=== PATIENT | male | born 1950 | race Two or more races ===

== ENCOUNTER 2023-11-11 21:32 | Emergency (ER) | payer OTHER ==
[~2023-11-11] VITALS: Ht 182.9 cm; Wt 77.1 kg
[2023-11-11] MEDS ORDERED: HYDROcodone 5-APAP 325 TAB PO ONE (23:05)
[2023-11-12] MEDS ORDERED: RX Prepack 6 Tabs Oxycodone 5mg UD ONE (00:15)
[2023-11-12 00:30] VITALS: BP 143/78
== END 2023-11-12 00:48 | disposition home or self-care (01) ==
LOC: ER 21:32
DX: T83.83XA Hemorrhage due to genitourinary prosthetic devices, implants and grafts, initial encounter (principal); R33.9 Retention of urine, unspecified; R31.9 Hematuria, unspecified; Y73.8 Miscellaneous gastroenterology and urology devices associated with adverse incidents, not elsewhere classified; Y84.8 Other medical procedures as the cause of abnormal reaction of the patient, or of later complication, without mention of misadventure at the time of the procedure; Z87.891 Personal history of nicotine dependence
CPT/HCPCS: 51700; 99283-25; A9270